=== PATIENT | male | born 1990 | race Caucasian/White ===

== ENCOUNTER 2019-10-31 15:04 | Emergency (ER) | payer SELFPAY ==
[2019-10-31 15:14] VITALS: BP 116/71
--- NOTE | 2019-10-31 15:43 | ER Document Report ---
ED GI/ - General Chief Complaint: Urinary pain Stated Complaint: PAINFUL URINATION Time Seen by Provider: 10/31/19 15:39 Primary Care Provider: KATH FONTENOT MD [NO LOCAL MD] - Follow up as needed Mode of Arrival: Ambulatory Information source: Patient Notes: 29-year-old male presented to ED for complaint of pain with urination for the last 2 days. He is alert oriented respirations regular nonlabored speaking in full sentences. He states he has had unprotected sex. He also asked about other STD testing. I did tell him that he could go to the health department to get all STD checking. We will get the GC and chlamydia testing and a UA. Was at the office is at the office yesterday - HPI Patient complains to provider of: Other - Pain with urination Onset: Other - 2 days Timing/Duration: Gradual Quality of pain: Burning Severity at maximum: Moderate Severity in ED: None Pain Level: Denies - And only with urination Associated symptoms: Other - Burning with urination Exacerbated by: Other - Urination Relieved by: Denies Similar symptoms previously: No Recently seen / treated by doctor: No - Related Data Allergies/Adverse Reactions: No Known Allergies Allergy (Unverified 10/31/19 15:28) Past Medical History - General Information source: Patient - Social History Smoking Status: Never Smoker Chew tobacco use (# tins/day): No Frequency of alcohol use: None Drug Abuse: None Family History: Reviewed & Not Pertinent Patient has homicidal ideation: No - Past Medical History Cardiac Medical History: Reports: None Pulmonary Medical History: Reports: None EENT Medical History: Reports: None Neurological Medical History: Reports: None Endocrine Medical History: Reports: None Renal/ Medical History: Reports: None Malignancy Medical History: Reports None GI Medical History: Reports: None Musculoskeletal Medical History: Reports None Skin Medical History: Reports None Psychiatric Medical History: Reports: None Traumatic Medical History: Reports: None Infectious Medical History: Reports: None Surgical Hx: Negative Past Surgical History: Reports: None - Immunizations Immunizations up to date: Yes Review of Systems - Review of Systems Constitutional: No symptoms reported EENT: No symptoms reported Cardiovascular: No symptoms reported Respiratory: No symptoms reported Gastrointestinal: No symptoms reported Genitourinary: Burning Male Genitourinary: No symptoms reported Musculoskeletal: No symptoms reported Skin: No symptoms reported Hematologic/Lymphatic: No symptoms reported Neurological/Psychological: No symptoms reported Physical Exam - Vital signs Vitals: Temp Pulse Resp BP Pulse Ox 98.6 F 86 16 116/71 99 10/31/19 15:10 10/31/19 15:10 10/31/19 15:10 10/31/19 15:10 10/31/19 15:10 Interpretation: Normal - General General appearance: Appears well, Alert - HEENT Head: Normocephalic, Atraumatic Eyes: Normal Pupils: PERRL - Respiratory Respiratory status: No respiratory distress Chest status: Nontender Breath sounds: Normal Chest palpation: Normal - Cardiovascular Rhythm: Regular Heart sounds: Normal auscultation Murmur: No - Abdominal Inspection: Normal Distension: No distension Bowel sounds: Normal Tenderness: Nontender Organomegaly: No organomegaly - Back Back: Normal, Nontender - Extremities General upper extremity: Normal inspection, Nontender, Normal color, Normal ROM, Normal temperature General lower extremity: Normal inspection, Nontender, Normal color, Normal ROM, Normal temperature, Normal weight bearing. No: Mariana's sign - Neurological Neuro grossly intact: Yes Cognition: Normal Orientation: AAOx4 [place] Coma Scale Eye Opening: Spontaneous Alex Coma Scale Verbal: Oriented Alex Coma Scale Motor: Obeys Commands [place] Coma Scale Total: 15 Speech: Normal Motor strength normal: LUE, RUE, LLE, RLE Sensory: Normal - Psychological Associated symptoms: Normal affect, Normal mood - Skin Skin Temperature: Warm Skin Moisture: Dry Skin Color: Normal Course - Re-evaluation Re-evalutation: 10/31/19 18:49 UA was negative for any urinary tract infection. Patient was not here long enough to get the results for the gonorrhea and chlamydia. He was treated with Rocephin 250 mg IM and azithromycin 1 g. He was instructed please no sexual intercourse until he found the results of his test. He was given the culture line to call tomorrow. The results have come back I have asked the nurse to give him a call as his gonorrhea and Chlamydia are negative. They have stated that they would call the patient. - Vital Signs Vital signs: Temp Pulse Resp BP Pulse Ox 98.6 F 86 16 116/71 99 10/31/19 15:10 10/31/19 15:10 10/31/19 15:10 10/31/19 15:10 10/31/19 15:10 Discharge - Discharge Clinical Impression: Pain with urination, Concern about STD in male without diagnosis Condition: Stable Disposition: HOME, SELF-CARE Instructions: [facility] Additional Instructions: You were seen today for painful urination. You do not have a UTI or a urinary tract infection. Th STD testing is still in progress as we discussed I will treat you with Rocephin and azithromycin and you can find the answer to the other questions tomorrow by calling [phone] Rocephin You have been given an injection of an antibiotic called Rocephin (ceftriaxone). Sometimes the injection must be combined with antibiotic pills. For some infections, such as an uncomplicated ear infection, Rocephin provides all the antibiotic that's needed. The antibiotic will be in your body for about two days. For serious infections, we usually repeat doses of Rocephin daily. Side effects are very unusual following a shot. Women may develop vaginal yeast infections, and babies can get yeast (thrush) in the mouth following the use of antibiotics. Contact your physician if you have symptoms with this medication. Allergy to this antibiotic can result in hives, wheezing, faintness, or itching. If symptoms of allergy occur, call the doctor at once. AZITHROMYCIN: Azithromycin (Zithromax) is a broad spectrum antibiotic in the same class as erythromycin. It can treat a variety of bacterial infections, but is most frequently used for respiratory infections. Azithromycin is extremely long-lasting. It accumulates in body tissues and continues to kill bacteria for many days. In order to improve absorption, Azithromycin should be taken at least one hour before or two hours after a meal. It does not have the same strong tendency to upset the stomach as erythromycin and is usually very well tolerated. Patients who have had a rash or other true allergic reactions to erythromycin should not take this medication. Call if you develop gastrointestinal distress, severe diarrhea, rash, hives, itching, or shortness of breath. FOLLOW-UP CARE: If you have been referred to a physician for follow-up care, call the physicians office for an appointment as you were instructed or within the next two days. If you experience worsening or a significant change in your symptoms, notify the physician immediately or return to the Emergency Department at any time for re-evaluation. Referrals: KATH FONTENOT MD [NO LOCAL MD] - Follow up as needed
[2019-10-31 16:48] LABS: APPEARANCE,URINE CLEAR; BILIRUBIN,URINE NEGATIVE (NEGATIVE); COLOR,URINE YELLOW; GLUCOSE, URINE NEGATIVE (NEGATIVE); KETONES,URINE NEGATIVE (NEGATIVE); LEUKOCYTE ESTERASE,URINE NEGATIVE (NEGATIVE); NITRITE,URINE NEGATIVE (NEGATIVE); PROTEIN,URINE NEGATIVE (NEGATIVE); URINE SPECIFIC GRAVITY 1.018; UROBILINOGEN,URINE NEGATIVE mg/dL (<2.0)
[2019-10-31] MEDS ORDERED: CEFTRIAXONE INJ 250 MG VIAL IM ONE (17:10)
[2019-10-31] MEDS ORDERED: AZITHROMYCIN 250 MG TABLET PO ONE (17:10)
[2019-10-31] MEDS ORDERED: LIDOCAINE 1% INJ-PF (10 MG/ML) 30 ML SDV INJ ONE (17:10)
[2019-10-31 18:05] LABS: CHLAM PCR NOT DETECTED (NOT DETECT)
== END 2019-10-31 17:36 | disposition home or self-care (01) ==
LOC: ER 15:04
DX: R30.0 Dysuria (principal); Z20.2 Contact with and (suspected) exposure to infections with a predominantly sexual mode of transmission
CPT/HCPCS: 99284; 96372; 87086; 81001; 87491; 87591; J3490; J0696

== ENCOUNTER 2020-03-21 17:46 | Emergency (ER) | payer SELFPAY ==
[2020-03-21] MEDS ORDERED: DIPH/PERTUSS(ACELL)/TETANUS VAC/PF 0.5 ML SYR (>=10YO) IM ONE (19:13)
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
[2020-03-21 22:21] VITALS: BP 122/68
== END 2020-03-21 22:21 ==
LOC: ER 17:46
DX: S01.531A Puncture wound without foreign body of lip, initial encounter (principal); S01.511A Laceration without foreign body of lip, initial encounter; S16.1XXA Strain of muscle, fascia and tendon at neck level, initial encounter; M54.2 Cervicalgia; Y04.2XXA Assault by strike against or bumped into by another person, initial encounter; Y92.149 Unspecified place in prison as the place of occurrence of the external cause; Z23 Encounter for immunization; F17.210 Nicotine dependence, cigarettes, uncomplicated
CPT/HCPCS: 70110; 72040; 90471; 99284